=== PATIENT | female | born 1970 | race Caucasian/White ===

== ENCOUNTER 2017-09-30 09:32 | Emergency (ER) | payer OTHER ==
[~2017-09-30] VITALS: Ht 167.6 cm; Wt 59.4 kg
[2017-09-30 09:39] VITALS: BP 106/72
[2017-09-30] MEDS ORDERED: ERYTHROMYCIN E3.5 G3 OPHTHALMIC (09:49)
[2017-09-30] MEDS ORDERED: BACTRIM DS TAB1 EACH PO (09:49)
== END 2017-09-30 09:54 | disposition home or self-care (01) ==
LOC: M.ERS 09:32
DX: H10.9 Unspecified conjunctivitis (principal); Z88.0 Allergy status to penicillin